=== PATIENT | male | born 1980 | race Caucasian/White ===

== ENCOUNTER 2020-05-13 19:20 | Emergency (ER) | payer OTHER ==
[2020-05-13] MEDS ORDERED: IBUPROFEN600 MG PO (21:33)
== END 2020-05-13 22:16 | disposition home or self-care (01) ==
LOC: ER1 19:20
DX: S60.211A Contusion of right wrist, initial encounter (principal); S60.511A Abrasion of right hand, initial encounter; F17.200 Nicotine dependence, unspecified, uncomplicated; W23.0XXA Caught, crushed, jammed, or pinched between moving objects, initial encounter
CPT/HCPCS: 73110; 73130; 99283